=== PATIENT | female | born 1975 | race Caucasian/White ===

== ENCOUNTER 2018-11-07 11:49 | Emergency (ER) | payer SELFPAY ==
[~2018-11-07] VITALS: Ht 170.2 cm; Wt 79.5 kg
[2018-11-07 11:56] VITALS: BP 118/70; Ht 170.2 cm; Wt 79.5 kg
== END 2018-11-07 12:57 | disposition home or self-care (01) ==
LOC: ED 11:49
DX: M54.6 Pain in thoracic spine (principal)